=== PATIENT | female | born 1960 | race Caucasian/White ===

== ENCOUNTER 2017-05-22 14:33 | Emergency (ER) | payer OTHER ==
[~2017-05-22] VITALS: Ht 152.4 cm; Wt 68.0 kg
--- NOTE | ~2017-05-22 | CR21 ---
[facility] A Service of [facility] & [facility] RADIOLOGY TEXT RESULTS PATIENT: BRIA HENDRIX LOCATION: CFTX : 56 UNIT #: [id number] AGE: [address]: Dayana Harris APRN SEX: F ORDER DR: [id number] [facility] [place] [address] [place], [place] [address] [id number] E MR#: [id number] Acc #: [id number] NAME: BRIA HENDRIX. : 1960 SEX: F STUDY DATE/TIME: 05/22/2017 15:23 UNIT: [facility] ROOM: STUDY DESCRIPTION: CR Ankle Min 3 Views Rt Attending Physician: Dayana Harris A.P.R.N. Ordering Physician: Ed Doctor [id number] [facility] Primary Care Physician: Keron Oconnor Jr. A.P.RRaisa MEDICAL IMAGING REPORT This report is preliminary unless electronic signature is present EXAM Right ankle HISTORY Ankle pain laterally with swelling after falling yesterday on the right side. TECHNIQUE 3 views of the ankle were obtained. FINDINGS Degenerative changes are seen both medially and laterally with multiple bone spurs and ligamentous ossifications noted. The ankle mortise is mildly asymmetric wider on the lateral side than on the medial side. No acute fractures are seen. No radiodense foreign bodies are noted. IMPRESSION Chronic and degenerative changes at the ankle. No acute fracture noted. Dictated by... Jeffrey Ramsay M.D. THIS IS AN ELECTRONICALLY VERIFIED REPORT Jeffrey Ramsay M.D. at 05/23/2017 3:41 PM ROMELIA/valentin TD: 05/22/2017 18:18 JOB #: [id number] MEDICAL IMAGING REPORT Page 1 of 1 COPY
--- NOTE | ~2017-05-22 | CR127 ---
[facility] A Service of [facility] & [facility] RADIOLOGY TEXT RESULTS PATIENT: BRIA HENDRIX LOCATION: CFTX : 56 UNIT #: [id number] AGE: [address]: Dayana Harris APRN SEX: F ORDER DR: [id number] [facility] [address] [place], [place] [address] [id number] E MR#: [id number] Acc #: [id number] NAME: BRIA HENDRIX. : 1960 SEX: F STUDY DATE/TIME: 05/22/2017 15:21 UNIT: [facility] ROOM: STUDY DESCRIPTION: CR Foot Complete Min 3 View Rt Attending Physician: Sully WeebrRRaisa Ordering Physician: [facility] Primary Care Physician: Keron Oconnor Jr. A.P.R.NZion MEDICAL IMAGING REPORT This report is preliminary unless electronic signature is present EXAM Right foot HISTORY Foot pain and swelling on the right after falling yesterday. TECHNIQUE 3 views the right foot were obtained. FINDINGS 2 views of the foot show joint space narrowing and small osteophytes at the first MTP joint. There is no evidence of fracture, bone destruction or radiodense foreign body. No acute bony abnormalities are seen. IMPRESSION No fracture seen. Dictated by... Jeffrey Ramsay M.D. THIS IS AN ELECTRONICALLY VERIFIED REPORT Jeffrey Ramsay M.D. at 05/23/2017 3:41 PM RLF/pcl TD: 05/22/2017 18:30 JOB #: [id number] MEDICAL IMAGING REPORT Page 1 of 1 COPY
[~2017-05-22 14:33] MED LIST: ALPRAZOLAM PO; ASPIRIN PO; BENZONATATE200 M1 PO; DOXYCYCLINE HY100 M3 PO; HCTZ PO; KLOR-CON PO; LEVOXYL125 MC1 PO; LISINOPRIL PO; MEDROL DOSEPAK4 MG; PERCOCET5/325 PO; PHENERGAN PO; PRILOSEC PO; SYNTHROID PO; TRIAMTERENE-HC1 EACH PO
== END 2017-05-22 16:10 | disposition home or self-care (01) ==
LOC: CFTX 14:33 → CED 14:33 → CFTX 15:14
DX: S93.421A Sprain of deltoid ligament of right ankle, initial encounter (principal); E78.5 Hyperlipidemia, unspecified; E07.9 Disorder of thyroid, unspecified; Z88.5 Allergy status to narcotic agent; Z88.1 Allergy status to other antibiotic agents; W10.9XXA Fall (on) (from) unspecified stairs and steps, initial encounter; Y92.9 Unspecified place or not applicable
CPT/HCPCS: 29540; 73610; 73630; 99283